=== PATIENT | male | born 1995 | race Caucasian/White ===

== ENCOUNTER 2019-10-02 08:33 | Emergency (ER) | payer OTHER ==
[~2019-10-02] VITALS: Ht 175.3 cm; Wt 70.3 kg
[2019-10-02 08:45] VITALS: BP 119/82
[2019-10-02] MEDS ORDERED: FINASTERIDE1 MG PO (08:50)
== END 2019-10-02 09:14 | disposition home or self-care (01) ==
LOC: ER 08:33
DX: R05 Cough (principal); R50.9 Fever, unspecified; R06.02 Shortness of breath; R51 Headache; F17.210 Nicotine dependence, cigarettes, uncomplicated; Z20.828 Contact with and (suspected) exposure to other viral communicable diseases